=== PATIENT | female | born 1955 | race Caucasian/White ===

== ENCOUNTER 2016-08-30 19:22 | Emergency (ER) | payer OTHER ==
--- NOTE | 2016-08-30 19:18 | EDPHY ---
H & P Time Seen by Provider: 08/30/16 19:18 HPI/ROS: CHIEF COMPLAINT: Severe back pain HISTORY OF PRESENT ILLNESS: This 61-year-old woman was having some back pain yesterday which was mild. Today at 9:00 a.m. she sneezed and had sudden onset of severe back pain that was located in the bilateral lower lumbar area, without radiation. Much worse with any movement. She felt like it was muscles clenching down and then releasing but was not associated with incontinence or weakness or numbness of extremities. No fever and no recent fall or injury. She is brought in by EMS because the pain was intermittently getting so bad that she could walk or stand. REVIEW OF SYSTEMS: Eye: no change in vision ENT: no sore throat Cardiac: no chest pain or syncope Pulmonary: no cough or SOB Abdomen: no vomiting, diarrhea, abdominal pain Musculoskeletal: HPI Skin: no rash Neuro: no headache Constitutional: no fever : no urinary symptoms, no history of incontinence A comprehensive 10 point review of systems is otherwise negative aside from elements mentioned in the history of present illness. PAST MEDICAL HISTORY: Kidney transplant 4 years ago for renal failure, appendectomy. Social history: , nonsmoker General Appearance: Alert and conversant, cooperative. Eyes: No scleral icterus. ENT, Mouth: Normal mucous membranes. Respiratory: Normal respiratory effort, breath sounds equal, lungs are clear to auscultation. Cardiovascular: Regular rate and rhythm. Gastrointestinal: Abdomen is soft and non tender. Neurological: Alert and oriented x3. Normally conversant. Face symmetric, normal movement and sensation in all extremities. Straight leg raising negative bilaterally. Motor 5/5 including extensor hallucis bilaterally, patellar reflexes 2+ and ankle reflexes 1+ symmetric. Toes downgoing. Sensation intact to light touch. Skin: Warm and dry, no rashes. Musculoskeletal: Some lower lumbar spine tenderness and paraspinal muscle tenderness. Psychiatric: Not agitated. Emergency Department course/MDM: Valium 5 mg IV and morphine 6 mg IV. Lumbar spine x-rays ordered because of age of [age] years old and prednisone immunosuppressants causing concern for osteoporosis. Patient does have a normal neurologic exam objectively in her lower extremities. Doubt neurosurgical emergency. Discussed with patient that herniated disk, spinal stenosis, could not be excluded; but that given clinical presentation even with that diagnosis treatment is symptomatic with outpatient followup and referral. 1955: reexamined, results discussed, plan to road test after pain medications. No NSAIDS secondary to renal transplant. 2044: Ambulatory comfortable stable for discharge. Constitutional: Initial Vital Signs Temperature (C) 36.9 C 08/30/16 19:23 Heart Rate 84 08/30/16 19:23 Respiratory Rate 14 08/30/16 19:23 Blood Pressure 167/95 H 08/30/16 19:23 O2 Sat (%) 94 08/30/16 19:23 O2 Delivery Mode Room Air Allergies/Adverse Reactions: NSAIDS (Non-Steroidal Anti-Inflamma Allergy (Unverified 08/30/16 19:22) Sulfa (Sulfonamide Antibiotics) Allergy (Unverified 08/30/16 19:22) Home Medications: Medication Instructions Recorded Diazepam 5 mg PO TID PRN #15 tab 08/30/16 Hydrocodone/APAP 5/325 [[place] 1 - 2 tab PO Q4-6PRN PRN #11 tab 08/30/16 5/325] Medical Decision Making - Diagnostics Imaging: Lumbar spine x-rays viewed independently by myself are negative for fracture or other abnormality acutely. Differential Diagnosis: Differential diagnosis considered for back pain including but not limited to muscular pain, cauda equina syndrome, herniated disc, spine fracture, intra- abdominal causes and urinary tract infection. - Data Points Medications Given: Discontinued Medications Acetaminophen/Hydrocodone Bitart ([place] 5/325mg Prepack#6) 1 btl TAKEHOME EDNOW ONE Stop: 08/30/16 20:02 Last Admin: 08/30/16 20:53 Dose: 1 btl Diazepam (Valium Injection) 5 mg IVP EDNOW ONE Stop: 08/30/16 19:30 Last Admin: 08/30/16 19:45 Dose: 5 mg Morphine Sulfate (Morphine) 6 mg IVP EDNOW ONE Stop: 08/30/16 19:30 Last Admin: 08/30/16 19:47 Dose: 6 mg Ondansetron HCl (Zofran) 4 mg IVP EDNOW ONE Stop: 08/30/16 19:30 Last Admin: 08/30/16 19:45 Dose: 4 mg Departure - Departure Disposition: Home, Routine, Self-Care Clinical Impression: Back pain Condition: Good Instructions: Hydrocodone/Acetaminophen (By mouth), Acute Low Back Pain (ED) Referrals: Maximo Gannon MD [Medical Doctor] - As per Instructions Prescriptions: Diazepam 5 mg PO TID PRN #15 tab PRN Reason: Spasms Hydrocodone/APAP 5/325 [[place] 5/325] 1 - 2 tab PO Q4-6PRN PRN #11 tab PRN Reason: For Pain
[2016-08-30 19:25] VITALS: TEMP 98.4; O2SAT 94
[2016-08-30] MEDS ORDERED: DIAZEPAM 10 MG/2 ML SYR IVP ONE (19:29)
[2016-08-30] MEDS ORDERED: ONDANSETRON 4 MG/2 ML VIAL IVP ONE (19:29)
--- NOTE | 2016-08-30 20:00 | DX ---
Lumbar spine 2 views History: "Sudden onset of low back pain after a sneeze." Findings: The patient has 6 segments of lumbar type, in addition to 12 pairs of ribs, as confirmed on chest radiographs of 2008 and 2007. Rudimentary ribs are present at L1, and transverse processes are large at L6. Intervertebral disk at L3-L4 shows severe loss of height, with vacuum phenomenon. Small , sclerotic osteophytes are found at the margins of the interspace. Alignment is normal. No compressi on fracture. Impression: 1. Chronic disk degeneration, L3-L4. 2. Please note that there are 6 vertebral segments of lumbar type, labeled L1-L6.
[2016-08-30] MEDS ORDERED: HYDROCOD/APAP 5/325 PREPACK#6 BTL TAKEHOME ONE (20:01)
[2016-08-30 20:55] VITALS: BP 143/95; PULSE 79; RESP 16
== END 2016-08-30 20:57 | disposition home or self-care (01) ==
LOC: EDUNIT#
DX: M54.5 Low back pain (principal)
CPT/HCPCS: 96374; J2405

== ENCOUNTER → 2016-11-12 | Outpatient (CLI) | payer OTHER | LOC: BMCIMAGING 13:13 | PROVIDERS: ATTEND Family Medicine | DX: M79.641 Pain in right hand (principal) ==

== ENCOUNTER → 2017-10-28 | Outpatient (CLI) | payer OTHER | LOC: FIMAGING 13:44 | PROVIDERS: ATTEND Family Medicine | DX: Z12.31 Encounter for screening mammogram for malignant neoplasm of breast (principal); Z80.3 Family history of malignant neoplasm of breast ==

== ENCOUNTER → 2018-11-07 | Outpatient (CLI) | payer OTHER | LOC: FIMAGING 09:33 | PROVIDERS: ATTEND Psychiatry & Neurology Neurology | DX: R48.0 Dyslexia and alexia (principal); Z94.0 Kidney transplant status | CPT/HCPCS: 70551-PN ==